=== PATIENT | male | born 1990 | race American Indian/Alaskan Native ===

== ENCOUNTER 2019-04-28 00:43 | Emergency (ER) | payer SELFPAY ==
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
[2019-04-28] MEDS ORDERED: [UNRECOGNIZED DRUG - OTHER] IV ONE (09:49)
== END 2019-04-28 03:55 ==
LOC: ED 00:43
DX: S21.101A Unspecified open wound of right front wall of thorax without penetration into thoracic cavity, initial encounter (principal); W34.09XA Accidental discharge from other specified firearms, initial encounter; Y93.89 Activity, other specified; Y92.89 Other specified places as the place of occurrence of the external cause; Y99.8 Other external cause status
CPT/HCPCS: 92950; 99285; J0171